=== PATIENT | male | born 1970 | race Two or more races ===

== ENCOUNTER 2016-09-10 18:43 | Emergency (ER) | payer OTHER ==
[2016-09-10 18:55] VITALS: BP 121/80; BMI 32.6
[2016-09-10] MEDS ORDERED: SODIUM CHLORIDE 1,000 ML IV STA (19:59)
[2016-09-10] MEDS ORDERED: ALBUTEROL SO4 2.5/IPRATROPIUM 0.5 INH SOL 3 ML VIAL.NEB. NEB ONE (19:59)
[2016-09-10] MEDS ORDERED: SODIUM CHLORIDE 0.9% 1000 ML INFUS.BAG IV PRN (20:01)
[2016-09-10] MEDS ORDERED: ACETAMINOPHEN 325 MG TABLET (FP) PO ONE (20:05)
--- NOTE | 2016-09-10 20:06 | PDOC ---
History of Present Illness - General Chief Complaint: Shortness of Breath Stated Complaint: COLD SYMPTOMS Time Seen by Provider: 09/10/16 19:54 History Source: Patient, Spouse - History of Present Illness Initial Comments: 09/10/16 20:06 45 year old male with fever/ chills tmax 102 x 6 days with cough and shortness of breath.+ pleuritic pain, patient also reports mild frontal headache. Denies NVD, abdominal pain, chest pain. No PmHX Past History - Past Medical History Allergies/Adverse Reactions: Allergies Allergy/AdvReac Type Severity Reaction Status Date / Time No Known Allergies Allergy Verified 09/10/16 18:51 Home Medications: Ambulatory Orders No Home Medications 0 dose .ROUTE UTDICT 10/18/12 Albuterol Sulfate Inhaler - [Ventolin HFA Inhaler -] 1 - 2 inh PO Q4H PRN #1 inhaler 09/10/16 Azithromycin 250 mg PO DAILY #4 tablet 09/10/16 Other medical history: none - Immunization History Td Vaccination: No (UNKNOWN) Immunization Up to Date: No - Psycho/Social/Smoking Cessation Hx Anxiety: No Suicidal Ideation: No Smoking Status: No Smoking History: Never smoked Have you smoked in the past 12 months: No Number of Cigarettes Smoked Daily: 0 Information on smoking cessation initiated: No Hx Alcohol Use: No Drug/Substance Use Hx: No Substance Use Type: None Review of Systems - Review of Systems Able to Perform ROS?: Yes Is the patient limited Iranian proficient: No Constitutional: Yes: Chills, Fever Respiratory: Yes: Cough, Shortness of Breath, Productive cough, Other ( pleuritic pain) ABD/GI: No: Symptoms Reported, See HPI, Abdominal Distended, Abd. Pain w/ defecation, Blood Streaked Bowels, Constipated, Diarrhea, Difficulty Swallowing , Nausea, Poor Appetite, Poor Fluid Intake, Rectal Bleeding, Vomiting, Indigestion, Abdominal cramping, Tarry Stools, Other : No: Symptoms Reported, See HPI, Burning, Dysuria, Discharge, Frequency, Flank Pain, Hematuria, Incontinence, Pain, Urgency, Testicular Mass, Testicular Swelling, Lesions, Testicular Pain, Other Neurological: No: Symptoms reported, See HPI, Headache, Numbness, Paresthesia, Pre-Existing Deficit, Seizure, Tingling, Tremors, Weakness, Unsteady Gait, Ataxia, Dizziness, Other *Physical Exam - Vital Signs Last Vital Signs Temp Pulse Resp BP Pulse Ox 101.0 F H 96 H 18 121/80 100 09/10/16 18:52 09/10/16 18:52 09/10/16 18:52 09/10/16 18:52 09/10/16 18:52 - Physical Exam General Appearance: Yes: Appropriately Dressed Respiratory/Chest: positive: Rales (and decreased aeration throughout) Cardiovascular: positive: Regular Rhythm, Regular Rate Gastrointestinal/Abdominal: positive: Normal Bowel Sounds, Soft Extremity: positive: Normal Capillary Refill, Normal Inspection, Normal Range of Motion Integumentary: positive: Normal Color, Dry, Warm Neurologic: positive: Fully Oriented, Alert, Normal Mood/Affect ED Treatment Course - LABORATORY CBC & Chemistry Diagram: 09/10/16 20:15 09/10/16 20:15 Progress Note - Progress Note Progress Note: A: SIRS P: CBC CMP LActic acid blood culture UA URine culture chest pa/lateral Medical Decision Making - Medical Decision Making 09/10/16 21:53 Patient with LL PNA. A: IVF cbc cmp chest xray: LL pna *DC/Admit/Observation/Transfer Diagnosis at time of Disposition: Left lower lobe pneumonia Qualifiers: Pneumonia type: due to unspecified organism Qualified Code(s): J18.1 - Lobar pneumonia, unspecified organism - Discharge Dispostion Disposition: HOME Admit: No - Prescriptions Prescriptions: Azithromycin 250 mg PO DAILY #4 tablet Albuterol Sulfate Inhaler - [Ventolin HFA Inhaler -] 1 - 2 inh PO Q4H PRN #1 inhaler PRN Reason: Cough - Patient Instructions Printed Discharge Instructions: Pneumonia-Adult Additional Instructions: take azithromycin as prescribed take albuterol every 4 hours ihaler as needed for cough and congestion follow up with your doctor in 1-2 days. return immediately to the ER if symptoms worsen. - Post Discharge Activity Work/School Note: Back to Work
[2016-09-10] MEDS ORDERED: ACETAMINOPHEN 325 MG TABLET (FP) ONE (20:30)
[2016-09-10 20:32] LABS: VENOUS BLOOD GAS HCO3 29.8 meq/L (19-25); VENOUS PH 7.37 (7.32-7.42)
[2016-09-10 20:36] LABS: BASOPHIL 0.5 % (0-2.0); EOSINOPHIL 0.3 % (0-4.5); MCHC 33.3 g/dl (32.0-35.9); MEAN CELL VOLUME 81.2 fl (80-96); MEAN PLT VOLUME 8.2 fl (7.5-11.1); NEUTROPHILS 71.7 % (42.8-82.8); PLATELET COUNT 258 K/MM3 (134-434); RDW 13.2 % (11.9-15.9); WHITE BLOOD COUNT 13.4 K/mm3 (4.0-10.0)
[2016-09-10 20:57] LABS: ALBUMIN 4.1 g/dl (3.4-5.0); ANION GAP 10 (8-16); BILIRUBIN,TOTAL 0.7 mg/dL (0.2-1.0); CALCIUM 9.3 mg/dL (8.5-10.1); CO2 30 mmol/L (21-32); COCKROFT - GAULT 93.84; CREATININE 1.4 mg/dL (0.7-1.3); GLUCOSE,RANDOM 95 mg/dL (74-106); SGPT/ALT 36 U/L (12-78); TOT PROT 8.6 g/dl (6.4-8.2)
[2016-09-10 21:00] LABS: ALK PHOS 83 U/L (45-117); TROPONIN I < 0.02 ng/ml (0.00-0.05)
[2016-09-10 21:01] LABS: SGOT/AST 24 U/L (15-37)
[2016-09-10 21:06] LABS: INR 1.15 (0.82-1.09); PROTHROMBIN TIME (PATIENT) 12.7 SEC (9.98-11.88)
[2016-09-10 21:09] LABS: ACTIVATED PTT 34.8 SECONDS (26.9-34.4)
--- NOTE | 2016-09-10 21:38 | PDOC ---
*Physical Exam - Vital Signs Last Vital Signs Temp Pulse Resp BP Pulse Ox 101.0 F H 96 H 18 121/80 100 09/10/16 18:52 09/10/16 18:52 09/10/16 18:52 09/10/16 18:52 09/10/16 18:52 ED Treatment Course - LABORATORY CBC & Chemistry Diagram: 09/10/16 20:15 09/10/16 20:15 - ADDITIONAL ORDERS Additional order review: Laboratory Results 09/10/16 09/10/16 09/10/16 20:25 20:15 20:15 INR 1.15 H VBG pH 7.37 POC VBG pCO2 52.8 H POC VBG pO2 19.4 L* Mixed VBG HCO3 29.8 H Sodium 139 Potassium 4.1 Chloride 99 Carbon Dioxide 30 Anion Gap 10 BUN 14 Creatinine 1.4 H Creat Clearance w eGFR 55.31 Random Glucose 95 Lactic Acid Calcium 9.3 Total Bilirubin 0.7 AST 24 ALT 36 Alkaline Phosphatase 83 Creatine Kinase 211 Creatine Kinase Index Fashion Illustrator CK-MB (CK-2) < 1.000 Troponin I < 0.02 Total Protein 8.6 H Albumin 4.1 09/10/16 20:13 INR VBG pH POC VBG pCO2 POC VBG pO2 Mixed VBG HCO3 Sodium Potassium Chloride Carbon Dioxide Anion Gap BUN Creatinine Creat Clearance w eGFR Random Glucose Lactic Acid 0.910 Calcium Total Bilirubin AST ALT Alkaline Phosphatase Creatine Kinase Creatine Kinase Index CK-MB (CK-2) Troponin I Total Protein Albumin 09/10/16 20:15 RBC 5.15 MCV 81.2 MCHC 33.3 RDW 13.2 MPV 8.2 Neutrophils % 71.7 Lymphocytes % 21.1 Monocytes % 6.4 Eosinophils % 0.3 Basophils % 0.5 - Medications Given in the ED: ED Medications Discontinued Medications Generic Name Dose Route Start Last Admin Trade Name Freq PRN Reason Stop Dose Admin Acetaminophen 650 mg 09/10/16 20:05 09/10/16 20:38 Tylenol - PO 09/10/16 20:06 650 mg ONCE ONE Administration Albuterol/Ipratropium 1 amp 09/10/16 19:59 09/10/16 20:38 Duoneb - NEB 09/10/16 20:00 1 amp ONCE ONE Administration Sodium Chloride 1,000 mls @ 1,000 mls/hr 09/10/16 19:59 09/10/16 20:28 Normal Saline - IV 09/10/16 20:58 1,000 mls/hr ASDIR STA Administration Medical Decision Making - Medical Decision Making 09/10/16 21:37 agree with care from MONITORING AND EVALUATION ADVISOR Olayinka. Pt found to have LLL infiltrate.. WBC 13. Advised pt to stay for IV abx *DC/Admit/Observation/Transfer Diagnosis at time of Disposition: SIRS (systemic inflammatory response syndrome)
[2016-09-10] MEDS ORDERED: AZITHROMYCIN 250 MG TABLET (FP) PO ONE (21:39)
[2016-09-10] MEDS ORDERED: CEFTRIAXONE 1 GM in DEXTROSE 5%-WATER - 50 ML IVPB ONE (21:39)
[2016-09-10] MEDS ORDERED: AZITHROMYCIN 250 MG TABLET (FP) ONE (22:02)
[2016-09-10] MEDS ORDERED: CEFTRIAXONE 50 ML ONE (22:02)
[2016-09-10 22:40] VITALS: PULSE 78; TEMP 100.4
--- NOTE | 2016-09-11 13:28 | EKG ---
Test Reason : Blood Pressure : / mmHG Vent. Rate : 082 BPM Atrial Rate : 082 BPM P-R Int : 154 ms QRS Dur : 084 ms QT Int : 344 ms P-R-T Axes : 038 032 008 degrees QTc Int : 401 ms NORMAL SINUS RHYTHM NONSPECIFIC T WAVE ABNORMALITY ABNORMAL ECG NO PREVIOUS ECGS AVAILABLE Confirmed by MAGEN FREDERICK, ALPESH ([id number] on 09/11/2016 1:28:20 PM Referred By: Confirmed By:ALPESH US MD
== END 2016-09-10 22:39 | disposition home or self-care (01) ==
LOC: JER 18:43
PROC: 3E03329 Introduction of Other Anti-infective into Peripheral Vein, Percutaneous Approach (ICD-10-PCS; principal; 2016-09-10)
PROC: 3E0F7GC Introduction of Other Therapeutic Substance into Respiratory Tract, Via Natural or Artificial Opening (ICD-10-PCS; 2016-09-10)
DX: J18.1 Lobar pneumonia, unspecified organism (principal); R65.10 Systemic inflammatory response syndrome (SIRS) of non-infectious origin without acute organ dysfunction
CPT/HCPCS: 36415; 71020-TC; 80053; 82550; 82553; 82803; 83605; 84484; 85025; 85610; 85730; 86850; 86900; 86901; 87040; 87804; 93005; 93010; 94640; 96365; 99283-25

== ENCOUNTER 2021-05-07 09:16 | Emergency (ER) | payer OTHER ==
[2021-05-07 10:29] VITALS: BP 150/93; PULSE 65; TEMP 98.8; BMI 36.5
[2021-05-08 11:07] LABS: SARS-CoV-2 NAA Detected (Not Detected)
== END 2021-05-07 11:51 | disposition home or self-care (01) ==
LOC: JER 09:16
DX: U07.1 COVID-19 (principal)
CPT/HCPCS: 99283-25; C9803; U0003; U0005

== ENCOUNTER 2024-02-02 05:23 | Day surgery (SDC) | payer OTHER ==
[2024-01-26 16:01] VITALS: BMI 34.6
[2024-02-02 14:35] VITALS: TEMP 97.1
[2024-02-02 15:33] VITALS: PULSE 46; RESP 16
[2024-02-02 15:35] VITALS: BP 116/69
== END 2024-02-02 13:50 | disposition home or self-care (01) ==
LOC: JASU-ENDO 05:23
PROVIDERS: ATTEND Internal Medicine Gastroenterology
PROC: 0DBH8ZX Excision of Cecum, Via Natural or Artificial Opening Endoscopic, Diagnostic (ICD-10-PCS; 2024-02-02)
PROC: 0DBK8ZX Excision of Ascending Colon, Via Natural or Artificial Opening Endoscopic, Diagnostic (ICD-10-PCS; principal; 2024-02-02 11:30)
DX: D12.2 Benign neoplasm of ascending colon (principal); D12.0 Benign neoplasm of cecum; K64.8 Other hemorrhoids; K57.30 Diverticulosis of large intestine without perforation or abscess without bleeding
CPT/HCPCS: 82962; 88305-TC